=== PATIENT | female | born 1955 | race Caucasian/White ===

== ENCOUNTER → 2018-02-18 | Outpatient (CLI) | payer OTHER ==
[~2018-02-18] MED LIST: CALC600T63 PO; CHOL10005 PO; GARL10005 PO; HYDR-4309 PO; KELP1TAB PO; OMEG-11 PO
--- NOTE | 2018-02-19 11:42 | RADIOLOGY IMAGING REPORT ---
FACILITY: [facility] PATIENT NAME: FRANCINE KAT : [id number] MR: [id number] V: [id number] EXAM DATE: ORDERING PHYSICIAN: DREW PENN TECHNOLOGIST: Gail Ahuja PROCEDURE:BILATERAL DIGITAL SCREENING MAMMOGRAM WITH CAD ASSISTED INTERPRETATION & 3D TOMOSYNTHESIS COMPARISON:Prior mammograms 02/07/17, 11/17/14, 09/23/12, 09/16/12, 09/11/11. INDICATIONS:SCREENING FINDINGS: Moderately heterogeneous fibroglandular tissue is seen throughout the breasts. On the Left CC view there is a focal asymmetry just lateral to midline MLO 1/3 Left breast for which Spot compression view is recommended. The remainder of the parenchymal pattern has remained stable throughout the breasts. DIAGNOSTIC CATEGORY 0--INCOMPLETE: NEED ADDITIONAL IMAGING EVALUATION. RECOMMENDATIONS: ADDITIONAL MAMMOGRAPHIC VIEWS REQUIRED: LEFT BREAST. IMPRESSION: BIRADS 0: Incomplete. Additional views of Left breast recommended as described. Dictated by: Nisa Cook M.D. on 02/18/2018 at 16:27 Transcribed by: HARRISON on 02/19/2018 at 8:47 Approved by: Nisa Cook M.D. on 02/19/2018 at 11:42 [facility]
== END ==
LOC: MAMO 01:28
PROVIDERS: ATTEND Obstetrics & Gynecology
DX: Z12.31 Encounter for screening mammogram for malignant neoplasm of breast (principal); R92.8 Other abnormal and inconclusive findings on diagnostic imaging of breast
CPT/HCPCS: 77063; 77067

== ENCOUNTER → 2018-02-26 | Outpatient (CLI) | payer OTHER ==
--- NOTE | 2018-02-26 11:33 | RADIOLOGY IMAGING REPORT ---
FACILITY: [facility] PATIENT NAME: FRANCINE KAT : [id number] MR: [id number] V: [id number] EXAM DATE: ORDERING PHYSICIAN: DREW PENN TECHNOLOGIST: Gail Ahuja PROCEDURE:LEFT DIGITAL DIAGNOSTIC MAMMOGRAM COMPARISON:None. INDICATIONS:FURTHER EVAL HISTORY: A small asymmetry central Left breast CC view only seen on recent screening mammogram dated 02/18/18. FINDINGS: Spot compression 2D & 3D imaging was performed over the area of concern. With Spot compression views particularly appreciated on the Tomographic images the asymmetry effaces. Whole breast mediolateral view is likewise normal. Represented a benign conflict of shadows. DIAGNOSTIC CATEGORY 1--NEGATIVE. RECOMMENDATIONS: ROUTINE MAMMOGRAM AND CLINICAL EVALUATION. IMPRESSION: BIRADS 1: Negative. Routine mammographic screening. Dictated by: Jeremiah Cramer M.D. on 02/26/2018 at 11:01 Transcribed by: HARRISON on 02/26/2018 at 11:16 Approved by: Jeremiah Cramer M.D. on 02/26/2018 at 11:33 [facility]
== END ==
LOC: MAMO 01:21
PROVIDERS: ATTEND Obstetrics & Gynecology
DX: R92.8 Other abnormal and inconclusive findings on diagnostic imaging of breast (principal)
CPT/HCPCS: 77061; 77065

== ENCOUNTER → 2019-02-21 | Outpatient (CLI) | payer MEDICARE, OTHER ==
[~2019-02-21] MED LIST changes: -HYDR-4309 PO; +HYDR-653 PO
--- NOTE | 2019-02-24 16:05 | RADIOLOGY IMAGING REPORT ---
FACILITY: [facility] PATIENT NAME: FRANCINE KAT : [id number] MR: [id number] V: [id number] EXAM DATE: [id number] ORDERING PHYSICIAN: DREW PENN TECHNOLOGIST: Tamara Maddox PROCEDURE: BILATERAL DIGITAL SCREENING MAMMOGRAM WITH CAD ASSISTED INTERPRETATION & 3D TOMOSYNTHESIS. REASON FOR STUDY: Screening. FAMILY HISTORY OF BREAST CANCER: None. BREAST PROCEDURES/TREATMENTS: None. COMPARISON: 02/26/18, 02/18/18, 02/07/17, 11/17/14, 09/23/12, 09/16/12. VIEWS OBTAINED: Bilateral 2D & 3D full field CC & MLO projections. BREAST DENSITY: The breasts are heterogeneously dense which can obscure small masses. MAMMOGRAM FINDINGS: The parenchymal pattern has remained stable allowing for difference in mammographic technique & patient positioning. IMPRESSION: BIRADS 1: Negative. DIAGNOSTIC CATEGORY 1--NEGATIVE. RECOMMENDATIONS: ROUTINE MAMMOGRAM AND CLINICAL EVALUATION. Dictated by: Nisa Cook M.D. on 02/21/2019 at 15:25 Transcribed by: HARRISON on 02/21/2019 at 15:48 Approved by: Nisa Cook M.D. on 02/24/2019 at 16:02 [facility]
== END ==
LOC: MAMO 00:20
PROVIDERS: ATTEND Obstetrics & Gynecology
DX: Z12.31 Encounter for screening mammogram for malignant neoplasm of breast (principal)
CPT/HCPCS: 77063; 77067